=== PATIENT | female | born 1930 | race Caucasian/White ===

== ENCOUNTER → 2017-11-04 | Outpatient (CLI) | payer MEDICARE ==
[2014-03-08 15:34] VITALS: BMI 17.4
[~2017-11-04] MED LIST: ASPI-870; ASPI81TA94 PO; Amoxicillin/Clavulanate K PO; CHOL200018 PO; DEN60I SUBQ; ENOXAPARIN SC; ERGO500047 PO; FURO-45 PO; HYDR-3250 PO; HYDR1TAB PO; LEVO50TA80 PO; LEVO50TA86 PO; LEVO88TA42 PO; NAP250 PO; NYST15PO12 TP; Polyethylene Glycol PO; SPIR25TA80 PO; TRA50 PO; TRAM-627 PO; WARF5TAB23 PO; [UNRECOGNIZED DRUG - CODE] PO
--- NOTE | 2017-11-04 16:42 | RADIOLOGY IMAGING REPORT ---
FACILITY: [facility] [place] PATIENT NAME: Fanny Sams : 1930 MR: [id number] V: [id number] EXAM DATE: [id number] ORDERING PHYSICIAN: CHARLOTTE ALVAREZ TECHNOLOGIST: Location: [facility] [place] Patient: Fanny Sams : 1930 Visit/Account:[id number] Date of Sevice: 11/04/2017 Exam type: LUMBAR SPINE 2 OR 3 VIEW History: Severe back pain Comparison: September 09, 2010. Findings: Two views the lumbar spine were submitted. The frontal view is severely rotated towards the left. T here is a levoconvex scoliosis lumbar spine . There appear to be five nonrib-bearing lumbar-type vertebra. There is a mild compression fracture involving the superior endplate of L4 that appears slightly incr eased. This mild compression fracture involving superior endplate of L2 appears similar to the prior examination. There is a severe compression fracture T12 that appears new when compared the prior st udy. Again noted are severe vascular calcifications of the abdominal aorta and branch vessels IMPRESSION: 1. Mild compression fracture of the superior endplate of L4 appear slightly increased Mild compression fracture involving superior endplate of L2 appears similar to the prior examination There is a new severe compression fracture involving the T12 vertebral body Report Dictated By: Patricia Yancey MD at 11/04/2017 4:34 PM Report E-Signed By: Patricia Yancey MD at 11/04/2017 4:37 PM WSN:[email or web address]
--- NOTE | 2017-11-04 16:48 | RADIOLOGY IMAGING REPORT ---
FACILITY: [facility] [place] PATIENT NAME: Fanny Sams : 1930 MR: [id number] V: [id number] EXAM DATE: [id number] ORDERING PHYSICIAN: CHARLOTTE ALVAREZ TECHNOLOGIST: Location: [facility] Patient: Fanny Sams : 1930 Visit/Account:[id number] Date of Sevice: 11/04/2017 Exam type: THORACIC SPINE 2 VIEW History: Severe back pain Comparison: Thoracolumbar spine September 09, 2010. Findings: There is a severe S-shaped scoliosis of the thoracolumbar spine. There is diffuse osteopenia present . There are multiple compression fractures in the thoracic spine that appear to been advanced when c ompared the prior study study. This includes a severe compression fracture T12. Incidentally noted is marked ectasia of the abdominal aorta IMPRESSION: 1. Severe S-shaped scoliosis of the thoracal lumbar spine Diffuse osteopenia Multiple compression fractures of the thoracic spine appear to have advanced when compared to the dawn or study including a severe compression fracture at T12 Report Dictated By: Patricia Yancey MD at 11/04/2017 4:42 PM Report E-Signed By: Patricia Yancey MD at 11/04/2017 4:44 PM WSN:[email or web address]
== END ==
LOC: RAD 14:01
PROVIDERS: ATTEND Family Medicine
DX: M41.35 Thoracogenic scoliosis, thoracolumbar region (principal); M85.80 Other specified disorders of bone density and structure, unspecified site; S32.020A Wedge compression fracture of second lumbar vertebra, initial encounter for closed fracture; S32.040A Wedge compression fracture of fourth lumbar vertebra, initial encounter for closed fracture
CPT/HCPCS: 72070; 72100

== ENCOUNTER → 2018-01-22 | Outpatient (REF) | payer MEDICARE ==
[2014-03-08 15:34] VITALS: BMI 17.4
== END ==
LOC: ZZLCC 07:48
PROVIDERS: ATTEND Family Medicine
DX: E03.9 Hypothyroidism, unspecified (principal); Z79.899 Other long term (current) drug therapy
CPT/HCPCS: 82310; 82374; 82435; 82565; 82947; 84132; 84295; 84436; 84443; 84520

== ENCOUNTER → 2018-07-30 | Outpatient (REF) | payer MEDICARE ==
[2014-03-08 15:34] VITALS: BMI 17.4
== END ==
LOC: ZZLCC 11:58
PROVIDERS: ATTEND Family Medicine
DX: E03.9 Hypothyroidism, unspecified (principal); Z79.899 Other long term (current) drug therapy
CPT/HCPCS: 82310; 82374; 82435; 82565; 82947; 84132; 84295; 84436; 84520